=== PATIENT | female | born 1945 | race Caucasian/White ===

== ENCOUNTER 2017-03-01 13:44 | Emergency (ER) | payer OTHER ==
--- NOTE | 2017-03-01 14:08 | EDPHY ---
HPI/HX/ROS/PE/MDM - Data Points Imaging: Discussed imaging studies w/ yard caller Radiologist, I viewed and interpreted images myself Narrative: CHIEF COMPLAINT: "Disconnected from my body" HPI: The patient is a 71 y/o female, with a history of breast cancer and peripheral neuropathy, arriving with her complaining of feeling "disconnected from my body" over the last 2 days. She initially noticed that her "right arm wasn't doing what I wanted it to do" when she was moving laundry yesterday. Today she feels like her vision is different and feels generally "disconnected." Her family member noticed her left pupil was larger than the right today, which the patient reports is abnormal. She also has some mild associated dizziness and feels mildly near-syncopal. She has difficulty describing her symptoms and repeatedly says she feels like she is "out of my body." She denies headache, weakness or blurred vision, but then says she has difficulty seeing words on paper when reading. She denies recent trauma or illness, eye surgeries, or eye drop use. She does mention she's been changing the time of day at which she takes her Gabapentin. REVIEW OF SYSTEMS: Aside from elements discussed in the HPI, a comprehensive 10-point review of systems was reviewed and is negative. PMH: Breast cancer, Peripheral neuropathy - Gabapentin SOCIAL HISTORY: at bedside. PHYSICAL EXAM: General:Patient is alert, in no acute distress. ENT: Left pupil 5mm, right pupil 3mm, eyes are otherwise normal to inspection. ENT inspection normal. Neck: Normal inspection. Full range of motion. Respiratory:No respiratory distress. Breath sounds normal bilaterally. Cardiovascular: Regular rate and rhythm. Strong peripheral pulses. Normal cap refill. Abdomen:The abdomen is nontender to palpation. There are no peritoneal signs. Back: Normal to inspection. No tenderness to palpation. Skin: Normal color. No rash. Warm and dry. Extremities: Normal appearance. Full range of motion. Neuro: Oriented x3. Normal motor function. Normal sensory function. No pronator drift. Normal right [id number]. Slightly abnormal [id number] on left. No facial droop. (Willi Campbell) ED Course: This is a 71 y/o female with a history of breast cancer who presents with a 2- day history of feeling "disconnected" from her body. She has a difficult time describing abnormal sensations in her right arm and with her vision. Her neuro exam is largely unremarkable, but her left ftfmys-cv-[id number] exam is slightly abnormal. She has anisocoria with a larger left pupil. Plan for IV, labs, EKG, and head CT. 500mL IV NS administered. The 12 lead EKG was interpreted by myself. Sinus rhythm. See hard copy and/or "tracemaster" electronic copy for interpretation. Head CT is negative per Dr. Grier. 1500: Patient care transferred to Dr. Augustine at shift change. Labs pending. If work up is normal, patient can follow up with a neurologist this week for continued symptoms. (Willi Campbell) MDM: I saw the patient at 3:30 p.m.. She is conversational and appears alert neurologically intact. Her left pupil is still more dilated than her right eye. We discussed again the possibility that she could have gotten something in her eye to cause pupil dilation but she is quite adamant she does not think so. We discussed laboratory evaluation reviewed the head CT. We discussed MRI for further evaluation. She expresses agreement. She does not currently wish any sedation for the MRI EKG interpreted by me shows normal sinus rhythm normal interval and axis QRS is normal there is no significant ST elevation or depression. There is no arrhythmia. The rate is 60 3:55 p.m.. Patient changes her mind and would like Ativan prior to her MRI. It is ordered intravenously and will be given just before she goes to the MRI Re-evaluation at 6:50 p.m.. Patient is stable. Neurologically intact. There is no ptosis. There is no restriction of gaze. Conversational. The patient, her , and I discussed imaging, lab, EKG findings. We discussed treatment plan including criteria for return importance of follow-up and further evaluation. They expressed understanding and agreement I consulted and discussed the case with Dr. Benoit Ray, neurology, who recommends no further imaging or workup at this point. He would like to see the patient in the office tomorrow. (Joseph Augustine) - Data Points Imaging Results: Imaging Impressions Head CT 03/01/17 14:12 Impression: There is no acute abnormality identified on this unenhanced CT evaluation. If there is further clinical concern regarding the patient's symptoms, MR imaging is suggested, if not otherwise contraindicated. Findings were discussed with Willi Campbell MD at 14:46, on 03/01/2017. Brain MRI 03/01/17 15:42 Impression: 1. Mild atrophy. 2. No acute hemorrhage, definite acute infarct, hydrocephalus, or mass effect. 3. Several nonspecific hyperintense T2/FLAIR signal abnormalities in the white matter of bilateral cerebral hemispheres. Differential diagnosis includes moderate microvascular ischemic gliosis, postinfectious/postinflammatory sequela , versus less likely atypical demyelinating disease, or migraine-related sequela. 4. No enhancing lesions. Findings and recommendations discussed with Emergency Department physician, Joseph Augustine M.D., at 1752 hours, on March 01, 2017. Final report concurs with initial preliminary interpretation. Neck MRA 03/01/17 15:42 Impression: MRA of the cervical carotids and vertebrals demonstrate no evidence of flow-limiting stenosis, occlusion, or dissection. Measurements of carotid stenosis is based on the residual internal carotid diameter with [place] Symptomatic Carotid Endarterectomy Trial (NASCET) based stenosis levels. Findings and recommendations discussed with Emergency Department physician, Joseph Augustine M.D., at 1750 hours, on March 01, 2017. Final report concurs with initial preliminary interpretation. Laboratory Results: Laboratory Results 03/01/17 14:25 03/01/17 14:25 03/01/17 03/01/17 03/01/17 14:25 14:25 14:25 WBC 4.89 10^3/uL 10^3/uL (3.80-9.50) RBC 4.16 10^6/uL L 10^6/uL (4.18-5.33) Hgb 13.0 g/dL g/dL (12.6-16.3) Hct 38.7 % % (38.0-47.0) MCV 93.0 fL fL (81.5-99.8) MCH 31.3 pg pg (27.9-34.1) MCHC 33.6 g/dL g/dL (32.4-36.7) RDW 12.9 % % (11.5-15.2) Plt Count 162 10^3/uL 10^3/uL (150-400) MPV 11.3 fL fL (8.7-11.7) Neut % (Auto) 44.0 % % (39.3-74.2) Lymph % (Auto) 45.2 % H % (15.0-45.0) [place] % (Auto) 8.2 % % (4.5-13.0) Eos % (Auto) 1.6 % % (0.6-7.6) Baso % (Auto) 1.0 % % (0.3-1.7) Nucleat RBC Rel Count 0.0 % % (0.0-0.2) Absolute Neuts (auto) 2.15 10^3/uL 10^3/uL (1.70-6.50) Absolute Lymphs (auto) 2.21 10^3/uL 10^3/uL (1.00-3.00) Absolute Monos (auto) 0.40 10^3/uL 10^3/uL (0.30-0.80) Absolute Eos (auto) 0.08 10^3/uL 10^3/uL (0.03-0.40) Absolute Basos (auto) 0.05 10^3/uL 10^3/uL (0.02-0.10) Absolute Nucleated RBC 0.00 10^3/uL 10^3/uL (0-0.01) Immature Gran % 0.0 % % (0.0-1.1) Immature Gran # 0.00 10^3/uL 10^3/uL (0.00-0.10) PT 13.2 SEC SEC (12.0-15.0) INR 1.01 (0.83-1.16) APTT 32.4 SEC SEC (23.0-38.0) Sodium 140 mEq/L mEq/L (134-144) Potassium 4.1 mEq/L mEq/L (3.5-5.2) Chloride 107 mEq/L mEq/L (97-110) Carbon Dioxide 22 mEq/l mEq/l (22-31) Anion Gap 11 mEq/L mEq/L (8-16) BUN 16 mg/dL mg/dL (7-23) Creatinine 1.0 mg/dL mg/dL (0.6-1.0) Estimated GFR 55 Glucose 96 mg/dL mg/dL (70-100) Calcium 9.8 mg/dL mg/dL (8.5-10.4) Troponin I < 0.012 ng/mL ng/mL (0.000-0.034) Medications Given: Discontinued Medications Sodium Chloride (Ns) 500 mls @ 0 mls/hr IV EDNOW ONE; Wide Open PRN Reason: Protocol Stop: 03/01/17 14:13 Last Admin: 03/01/17 14:43 Dose: 500 mls Lorazepam (Ativan Injection) 1 mg IVP EDNOW ONE Stop: 03/01/17 15:56 Last Admin: 03/01/17 18:12 Dose: Not Given General Time Seen by Provider: 03/01/17 14:01 Initial Vital Signs: Initial Vital Signs Temperature (C) 36.7 C 03/01/17 13:49 Heart Rate 64 03/01/17 13:49 Respiratory Rate 16 03/01/17 13:49 Blood Pressure 143/89 H 03/01/17 13:49 O2 Sat (%) 97 03/01/17 13:49 O2 Delivery Mode Room Air Allergies/Adverse Reactions: Penicillins Allergy (Intermediate, Verified 03/01/17 13:54) Hives Sulfa (Sulfonamide Antibiotics) Allergy (Intermediate, Verified 03/01/17 13:54) Hives amoxicillin [Amoxicillin] Allergy (Verified 03/01/17 13:49) Home Medications: Medication Instructions Recorded NEXIUM 12/15/09 Gabapentin [Neurontin 400 MG (*)] 900 mg PO HS 03/01/17 Departure - Departure Disposition: Home, Routine, Self-Care Clinical Impression: Vision changes, Anisocoria Condition: Good Instructions: Blurred Vision (ED) Additional Instructions: Follow up with Dr. Ray, neurologist, this week to further evaluate your symptoms. Return to the ED for severe headache, worsening vision, difficulty with speech, weakness or numbness on one side of your body, or other worsening of condition. Referrals: Alexis Ray DO [Medical Doctor] - 1-2 days without fail Report Scribed for: Willi Campbell Report Scribed by: Yola Cadet Date of Report: 03/01/17 Time of Report: 14:08 Physician Review and Approval Statement: Portions of this note were transcribed by an ED scribe. I personally performed the history, physical exam, and medical decision making; and confirm the accuracy of the information in the transcribed note.
[2017-03-01] MEDS ORDERED: NS 500 ML IV ONE (14:12)
--- NOTE | 2017-03-01 14:53 | CPEKG ---
Heart Rate: 60 RR Interval: 1000 QRSD Interval: 84 QT Interval: 480 QTC Interval: 480 QRS [place]: 56 T [place]: 56 EKG Severity - ABNORMAL ECG - EKG Impression: NSR Electronically Signed By: Joseph Augustine 01-Mar-2017 16:23:02
[2017-03-01 14:56] LABS: ANION GAP 11 mEq/L (8-16); CALCIUM 9.8 mg/dL (8.5-10.4); CARBON DIOXIDE 22 mEq/l (22-31); CHLORIDE 107 mEq/L (97-110); GLOMERULAR FILTRATION RATE 55; GLUCOSE 96 mg/dL (70-100); POTASSIUM 4.1 mEq/L (3.5-5.2); SODIUM 140 mEq/L (134-144)
[2017-03-01 14:57] LABS: ADD DIFF? NO; ADD MORPH? NO; ADD SCAN? NO; ATYPICAL LYMPHOCYTE FLAG 0 (0-99); FRAGMENT RBC FLAG 0 (0-99); HEMATOCRIT 38.7 % (38.0-47.0); LEFT SHIFT FLG 0 (0-99); LIPEMIA HEMOLYSIS FLAG 80 (0-99); MEAN CELL HEMOGLOBIN 31.3 pg (27.9-34.1); MEAN CELL HEMOGLOBIN CONCENTR. 33.6 g/dL (32.4-36.7); MEAN PLATELET VOLUME 11.3 fL (8.7-11.7); PLATELET CLUMPS FLAG 20 (0-99); PLATELET COUNT 162 10^3/uL (150-400); RED BLOOD CELL COUNT 4.16 10^6/uL (4.18-5.33); RED CELL DISTRIBUTION WIDTH 12.9 % (11.5-15.2)
[2017-03-01 15:07] LABS: INR 1.01 (0.83-1.16); PROTIME(PATIENT) 13.2 SEC (12.0-15.0); TROPONIN I < 0.012 ng/mL (0.000-0.034)
[2017-03-01 15:08] LABS: APTT 32.4 SEC (23.0-38.0)
[2017-03-01] MEDS ORDERED: LORazepam 2 MG/ML INJ IVP ONE (15:55)
[2017-03-01 16:10] VITALS: RESP 20; TEMP 98.2
[2017-03-01] MEDS ORDERED: GADOBUTROL 10 ML VIAL IVP ONE (16:50)
[2017-03-01 18:47] VITALS: BP 134/83; PULSE 76; O2SAT 94
== END 2017-03-01 18:47 | disposition home or self-care (01) ==
DX: H57.02 Anisocoria (principal); H53.8 Other visual disturbances; E86.9 Volume depletion, unspecified; Z85.3 Personal history of malignant neoplasm of breast
CPT/HCPCS: 70450; 70548; 70553; 93005; 96360; 99285; A9585; J2060